=== PATIENT | male | born 1995 | race African-American/Black ===

== ENCOUNTER 2016-09-14 14:28 | Emergency (ER) | payer BC, MEDICAID ==
--- NOTE | 2016-09-15 01:44 | RAD ---
THREE VIEWS OF THE LEFT HAND HISTORY: Left hand pain. FINDINGS: Three views of the left hand show no evidence of acute fracture or dislocation. No degenerative trent nges are seen. No focal soft tissue swelling is present. IMPRESSION: No significant abnormality of the left hand. POS: [facility]
== END 2016-09-14 15:15 | disposition home or self-care (01) ==
LOC: MADERS 14:28
DX: S60.212A Contusion of left wrist, initial encounter (principal); X58.XXXA Exposure to other specified factors, initial encounter; Y93.61 Activity, american tackle football

== ENCOUNTER 2019-09-16 18:13 | Emergency (ER) | payer BC | END 2019-09-16 18:52 | disposition home or self-care (01) | LOC: MADERS 18:13 | DX: Z20.2 Contact with and (suspected) exposure to infections with a predominantly sexual mode of transmission (principal) | CPT/HCPCS: 99281 ==